=== PATIENT | female | born 1990 | race Caucasian/White ===

== ENCOUNTER → 2017-03-04 | Outpatient (CLI) | payer OTHER ==
--- NOTE | 2017-03-04 12:25 | XR ---
EXAMINATION TYPE: XR hand complete LT DATE OF EXAM: 03/04/2017 12:20 PM COMPARISON: NONE HISTORY: 26-year-old female left index finger sprain, pain. TECHNIQUE: 3 views FINDINGS: Joint spaces throughout are preserved without acute fracture, subluxation, or dislocation. No periost itis or osteolysis. Particular attention to the index finger. IMPRESSION: No acute osseous abnormality seen.
== END | disposition home or self-care (01) ==
LOC: RADXRMAIN 11:53
PROVIDERS: ATTEND Emergency Medicine
DX: S63.611A Unspecified sprain of left index finger, initial encounter (principal)

== ENCOUNTER → 2017-03-04 | Outpatient (CLI) | payer SELFPAY | END | disposition home or self-care (01) | LOC: LABWHC1 11:33 | PROVIDERS: ATTEND Emergency Medicine | DX: N91.2 Amenorrhea, unspecified (principal) | CPT/HCPCS: 81025 ==

== ENCOUNTER → 2019-04-28 | Outpatient (CLI) | payer BC ==
--- NOTE | 2019-04-29 08:56 | USB ---
Reason for exam: clinical finding. Indicated problem(s): pain in the left breast. Physical Findings: Nurse Summary: all soft, movable, nodular (nurse ts). US Breast LT Left complete breast ultrasound includes all four quadrants, the retroareolar region and axilla. Finding demonstrates no cystic or solid lesion seen. These results were verbally communicated with the patient and result sheet given to the patient on 04/28/19. ASSESSMENT: Negative, BI-RAD 1 RECOMMENDATION: Clinical management of the left breast. Manage patient on a clinical basis.
== END | disposition home or self-care (01) ==
LOC: RADUSWWP 15:20
PROVIDERS: ATTEND Family Medicine
DX: N64.4 Mastodynia (principal); N60.19 Diffuse cystic mastopathy of unspecified breast